=== PATIENT | male | born 1985 | race Caucasian/White ===

== ENCOUNTER 2017-10-29 20:03 | Emergency (ER) | payer OTHER, SELFPAY ==
[2017-10-29 20:05] VITALS: BP 130/74; PULSE 93; RESP 17; TEMP 36.9; O2SAT 99; BMI 26.4
[2017-10-29 20:31] LABS: Absolute Lymphocyte Count 1.61 X10^3/ul (0.83-4.51); Absolute Neutrophil Count 4.3 X10^3/uL (2.0-7.7); Basophil# 0.01 X10^3/uL; Basophil% 0.2 % (0-1); Eosinophil# 0.07 X10^3/uL; Eosinophils% 1.1 % (0-5); Hematocrit 45.9 % (40-54); Hemoglobin 15.8 g/dl (13.0-16.5); Lymphocyte # 1.61 X10^3/ul (4.0); Lymphocyte % 24.3 % (19-41); Mean Corp Hgb Conc 34.4 g/gl (32-36); Mean Corpuscular Hgb 30.4 pg (27.0-32.0); Mean Corpuscular Volume 88.3 fL (80-94); Mean Platelet Vol. 10.9 fl (6.2-12.0); Monocyte# 0.61 X10^3/uL; Monocyte% 9.2 % (0-10); Neutrophil # 4.32 X10^3/uL (2.7-7.7); Platelet Count 203 K/mm3 (150-450); RBC Distribution Width CV 13.2 % (11.6-14.6); RBC Distribution Width SD 42.5 fl (35.1-43.9); White Blood Count 6.6 K/mm3 (4.4-11.0)
[2017-10-29 20:33] LABS: POSITIVE COUNT NO; POSITIVE DIFFERENTIAL NO; POSITIVE MORPHOLOGY NO
[2017-10-29 20:43] LABS: BUN 10 mg/dL (7-18); Creatinine, Serum 0.82 mg/dL (0.70-1.30); Estimated Creatinine Clearance 139.02 ml/min; Glucose 94 mg/dL (74-106)
[2017-10-29 20:44] LABS: Anion Gap 5 (5-15); BUN/Creat Ratio 12.3 RATIO (10-20); Calcium,Total 8.6 mg/dL (8.5-10.1); Chloride 108 mmol/L (98-107); EST Glomerular Filtration Rate 117 mL/min (>60); Est Glom Filt Rate - Afr Amer 142 mL/min (>60); Potassium 4.1 mmol/L (3.5-5.1); Sodium Level 142 mmol/L (136-145)
[2017-10-29 22:19] VITALS: RESP 18
[2017-10-29] MEDS: 0.9% Normal Saline 1,000 ML 1000 ML IV (22:36)
[2017-10-29] MEDS: Ondansetron 4 MG/2 ML Vial IV (22:36)
[2017-10-29] MEDS: Ketorolac 30 MG/ML Syringe IV (22:36)
[2017-10-29 22:55] LABS: AST(SGOT) 22 U/L (15-37); Alanine Aminotransfer ALT/SGPT 40 U/L (16-61); Albumin, Serum 3.9 g/dL (3.2-5.0); Alkaline Phosphatase 77 U/L (45-117); Bilirubin, Direct 0.22 mg/dL (0.00-0.30); Globulin 3.1 g/dL (2.2-4.2); Lipase 230 U/L (73-393)
--- NOTE | 2017-10-29 23:12 | ED.DCSUM_ITS ---
- ER Visit Summary Date of Service: 10/29/17 Chief Complaint: Abdominal pain History of Present Illness: The patient is a [address] Fischer. He reports he has upper abdominal pain began yesterday. Is gradually gotten worse. Is a sharp, continuous pain is 10-10 hours and 1 out of 10 currently. Is worsened by movement and relieved by remaining still. He reports it is not worsened by food. In fact 1:00 this afternoon he ate [employer] with no change in his pain. He has had nausea without vomiting. No diarrhea. His last bowel was yesterday. He has had no melena or hematochezia. No dysuria or frequency. Patient denies any history of fatty food intolerance. Patient has had sick contacts. [place] the [place]. No possible bad food exposure. Does not drink well water. No recent antibiotic use. Physical Examination: Vitals: Stable. Afebrile. General: Well-nourished and well-developed. Head: Normocephalic atraumatic. Neck: Supple, no lymphadenopathy. No JVD. Nontender. Cardiovascular: Regular rate and rhythm. No murmurs. Respiratory: No respiratory distress. Clear to auscultation bilaterally. Abdominal: Soft, mild diffuse upper abdominal tenderness to palpation, no localized pain in the right upper quadrant, no Li's sign, nondistended, normal bowel sounds. No guarding, rebound, or peritoneal signs. Back: Nontender. Extremities: Nontender, no edema. Skin: Normal color, no rash. Neurologic: Alert and oriented ?3. Cranial nerves II through XII are intact. Normal strength and sensation. Psych: Normal affect. Test Results: CBC is normal. Chem-7 is more for chloride of 108. LFTs are normal. Lipase normal. Emergency Department Course and Treatment: Patient was given a liter bolus of normal saline. Is given Toradol and Zofran IV. He is resting comfortably. Treatment Plan: He will be discharged on Zofran and Bentyl. Instructed to follow-up Dr. Fischer in 1-2 days if not improving. Return to the emergency department for any worsening symptoms. Disposition: To home in improved and stable condition. Impression: 1. Abdominal pain, uncertain cause. This note was generated with Outcome Referralsation software. It may contain incorrect words, spelling, and punctuation that were not noted in review of the chart prior to signing ED Disposition - Plan for ED Patient: Chief Complaint: Abd Pain Instructions: ED Abdominal Pain Unkn Cause Prescriptions: Ondansetron [Zofran Odt] 4 mg PO Q8H PRN PRN #10 tablet PRN Reason: Nausea Dicyclomine HCl [Bentyl] 20 mg PO TIDAC #20 capsule Referrals: Fermín Fischer MD [Primary Care Provider] - 1-2 Days if not improving
[2017-10-29 23:26] VITALS: BP 132/81; PULSE 86; RESP 18; O2SAT 97
== END 2017-10-29 23:28 | disposition home or self-care (01) ==
LOC: ED 23:01
PROVIDERS: Emergency Provider Emergency Medicine; Family Provider Family Medicine; PCP Family Medicine
DX: R10.10 Upper abdominal pain, unspecified (principal); R11.2 Nausea with vomiting, unspecified; R51 Headache
CPT/HCPCS: 80048; 80076; 83690; 85025; 96361; 96374; 96375; 99283; J7030; A4216; J2405

== ENCOUNTER 2018-03-30 18:43 | Emergency (ER) | payer OTHER, SELFPAY ==
[2018-03-30 18:43] VITALS: BP 125/78; PULSE 105; RESP 16; TEMP 36.6; O2SAT 94; BMI 25.7
--- NOTE | 2018-03-30 18:51 | ED.RN ---
CALLED KORIN FROM [facility] TO TEST THIS PT PER RN REQUEST
--- NOTE | 2018-03-30 19:27 | ED.VISSUMM ---
- ER Visit Summary Date of Service: 03/30/18 Chief Complaint: Face laceration History of Present Illness: The patient is a 32 M with direct impact to the bridge of his nose. No other injury no loss of consciousness no neck pain. No vision changes nausea or vomiting. Physical Examination: Otherwise unremarkable exam with a normal neurological exam. He has 1 cm laceration mid forehead right above his nose. It is not gaping. No C-spine tenderness. Emergency Department Course and Treatment: [Dermabond was used for skin approximation. Tetanus was updated.] Discharge stable condition Impression: [Facial laceration 1 cm] This note was generated with stylefruits dictation software. It may contain incorrect words, spelling, and punctuation that were not noted in review of the chart prior to signing ED Disposition - Plan for ED Patient: Disposition: Home or Assisted Living Chief Complaint: Laceration Instructions: ED Laceration All Referrals: Fermín Fischer MD [Primary Care Provider] - 3-5 Days
[2018-03-30] MEDS: Diphth,Pertuss(Acell),Tet Vac 0.5 ML Vial IM (19:46)
[2018-03-30 19:55] VITALS: BP 112/74; PULSE 68; RESP 15; O2SAT 97
== END 2018-03-30 19:56 | disposition home or self-care (01) ==
LOC: ED 19:39
PROVIDERS: Emergency Provider Emergency Medicine; Family Provider Family Medicine; PCP Family Medicine
DX: S01.81XA Laceration without foreign body of other part of head, initial encounter (principal); X58.XXXA Exposure to other specified factors, initial encounter; Y93.9 Activity, unspecified; Y92.9 Unspecified place or not applicable
CPT/HCPCS: 12011; 90471; 90715; 99282

== ENCOUNTER 2020-05-06 09:19 | Emergency (ER) | payer OTHER, SELFPAY ==
[2020-05-06 09:20] VITALS: BP 116/74; PULSE 84; RESP 16; TEMP 36.6; O2SAT 99; BMI 27.8
--- NOTE | 2020-05-06 09:28 | ED.DCSUM_ITS ---
History of Present Illness Chief Complaint: Cough Informant: Patient Narrative: 34-year-old male presenting from urgent care for testing of COVID?19. 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 He states sometimes he feels short of breath when he works too hard since Friday. He denies any chest pain. He does not have a fever, myalgias, change in taste and smell. She does admit to a headache yesterday that resolved. He denies any medical problems. He is a non-smoker. He has no surgical history. He has no allergies to medications. Patient has no exposure to COVID?19 that he knows of. He has no sick contacts. His i is at home and does not work. Past Medical History - Allergies and Home Meds Allergies/Adverse Reactions: Allergies No Known Allergies Allergy (Verified 05/06/20 09:23) Primary Care Physician: Fermín Fischer MD [Primary Care Provider] - Past Medical History: None Surgical History: no surgical history Lives: Spouse/ Significant Other Smoking Status: Never smoker Alcohol: None Drugs: None Review of Systems General: Denies: Chills, Fever Eyes: Denies: Visual changes - bilaterally, Diplopia ENT: Denies: Rhinorrhea, Sore throat Cardiovascular: Denies: Chest pain, Palpitations Respiratory: Reports: Dyspnea, Cough Gastrointestinal: Denies: Abdominal pain, Nausea, Vomiting, Diarrhea, Melena, Hematochezia Genitourinary: Denies: Dysuria, Hematuria, Frequency Musculoskeletal: Denies: Back pain, Extremity Pain Skin: Denies: Rash, Wounds Neurological: Reports: Headache. Denies: Weakness, Numbness Physical Exam Vital Signs/Narrative: Vital Signs Temp Pulse Resp BP Pulse Ox 05/06/20 09:20 97.8 F 84 16 116/74 99 General: Well nourished, No Acute Distress Head: Normocephalic, Atraumatic Eyes: Perrl, EOMI. Negative for: Scleral icterus ENT: Moist mucous membranes, No rhinorrhea Cardiovascular: Regular rate, Regular rhythm, No murmurs Respiratory: No distress, CTA bilaterally, Chest nontender Abdomen: Soft, Nontender Skin: Normal color, No rash Neurological: Alert, Oriented x3 Psychological: Normal affect, Normal Mood Diagnostic/Tx/Re-eval - Medical Decision Making Patient presenting for COVID?19 testing. He had a headache and some mild nausea yesterday which resolved. He does complain of some subjective shortness of breath but his vital signs are normal. He is afebrile. He is nontoxic-ap pearing. His physical exam is normal and his lungs are clear his heart is regular rate and rhythm. I do not believe the patient needs further work-up and COVID?19 testing. He will be tested and quarantined at home until his test results return. He was given strict return precautions. Patient is stable for discharge at this time. Impression: 1. Cough 2. Shortness of breath 3. Possible exposure to COVID?19 ED Disposition - Plan for ED Patient: Prescriptions: Albuterol Inhaler [Ventolin Hfa] 1 - 2 puff INHALATION Q4H PRN PRN #1 inhaler PRN Reason: Wheezing Prescription Printed Ondansetron [Zofran Odt] 4 mg PO Q8H PRN PRN #14 tab PRN Reason: Nausea Prescription Printed Referrals: Fermín Fischer MD [Primary Care Provider] -
== END 2020-05-06 10:25 | disposition home or self-care (01) ==
PROVIDERS: Emergency Provider Student in an Organized Health Care Education/Training Program; PCP Family Medicine
DX: R05 Cough (principal); R06.02 Shortness of breath; Z20.828 Contact with and (suspected) exposure to other viral communicable diseases
CPT/HCPCS: 87635; 99282; C9803; U0003